=== PATIENT | male | born 1990 | race Caucasian/White ===

== ENCOUNTER 2017-07-09 16:59 | Emergency (ER) | payer OTHER ==
[2017-07-09 19:43] VITALS: BP 122/85
[2017-07-09] MEDS ORDERED: Ketorolac INJ* 60 MG/2 ML VIAL IM ONE (21:09)
--- NOTE | 2017-07-09 21:10 | UC ---
Back Pain HPI - HPI Summary HPI Summary: while doing a squat tonight his back gave out and he had a sudden onset of acute low back pain, he was able to drive to urgent care, no numbness, legs n/m intact does have pain that is limiting his ability to ambulate - History of Current Complaint Chief Complaint: UCBackPain Stated Complaint: BACK PAIN Time Seen by Provider: 07/09/17 21:03 Hx Obtained From: Patient Onset/Duration: Sudden Onset, Lasting Hours Timing: Constant Severity Initially: Severe Severity Currently: Severe Pain Intensity: 6 Back Pain: Is Discrete @ - low back no spinal pain all pain is muscular Character: Aching Aggravating Factor(s): Movement, Walking Alleviating Factor(s): Rest, Position Associated Signs And Symptoms: Positive: Swelling - lateral muscles in lower back left greater than right. Negative: Numbness, Tingling, Bladder Incontinence, Bowel Incontinence Related History: Previous Back Injury - Allergies/Home Medications Allergies/Adverse Reactions: Allergies Allergy/AdvReac Type Severity Reaction Status Date / Time amoxicillin Allergy Rash Verified 07/09/17 19:43 cefaclor [From Ceclor] Allergy Rash Verified 07/09/17 19:43 cephalexin [From Keflex] Allergy Rash Verified 07/09/17 19:43 Home Medications: Home Medications NK [No Home Medications Reported] 07/09/17 [History Confirmed 07/09/17] PMH/Surg Hx/FS Hx/Imm Hx Previously Healthy: Yes - Surgical History Surgical History: Yes Surgery Procedure, Year, and Place: Removal of melanoma (lower back) 2005 - Family History Known Family History: Positive: None - Social History Occupation: Student Lives: Dormitory/Roommates Alcohol Use: Occasionally Substance Use Type: None Smoking Status (MU): Never Smoked Tobacco Review of Systems Constitutional: Negative Skin: Negative Eyes: Negative ENT: Negative Respiratory: Negative Cardiovascular: Negative Gastrointestinal: Negative Genitourinary: Negative Motor: Negative Neurovascular: Negative Musculoskeletal: Myalgia Neurological: Negative Psychological: Negative Is Patient Immunocompromised?: No All Other Systems Reviewed And Are Negative: Yes Physical Exam Triage Information Reviewed: Yes Appearance: Well-Appearing, Well-Nourished, Pain Distress Vital Signs: Initial Vital Signs Temp 99.3 F 07/09/17 19:34 Pulse 68 07/09/17 19:34 Resp 14 07/09/17 19:34 BP 122/85 07/09/17 19:34 Pulse Ox 100 07/09/17 19:34 Vital Signs Reviewed: Yes Eye Exam: Normal Eyes: Positive: Conjunctiva Clear ENT Exam: Normal ENT: Positive: Normal ENT inspection, Hearing grossly normal, TMs normal, Uvula midline. Negative: Nasal congestion, Nasal drainage, Tonsillar swelling, Tonsillar exudate, Trismus, Muffled voice, Hoarse voice, Dental tenderness, Sinus tenderness Neck exam: Normal Neck: Positive: Supple, Nontender, No Lymphadenopathy Respiratory Exam: Normal Respiratory: Positive: Chest non-tender, Lungs clear, Normal breath sounds, No respiratory distress, No accessory muscle use Cardiovascular Exam: Normal Cardiovascular: Positive: RRR, No Murmur, Pulses Normal, Brisk Capillary Refill Musculoskeletal Exam: Normal Musculoskeletal: Positive: Strength Intact - feel weak but from the back pain, ROM Intact, No Edema, Strength Limited @ Neurological Exam: Normal Neurological: Positive: Alert, Muscle Tone Normal Psychological Exam: Normal Psychological: Positive: Normal Response To Family Skin Exam: Normal Diagnostics - Radiology No standard instances Xray Interpretation: No Acute Changes Radiology Interpretation Completed By: Radiologist Re-Evaluation - Re-Evaluation First Eval Change: Improved - while patient has improved in his ability to ambulae pain in back is so sever it is difficult to lift his legs and he is holding in to a cane tight enough to shake--Ask Dr. Love to evaluat patient-who agrees patient should go to ED for further evaluation Back Pain Course/Dx - Course Course Of Treatment: toradol and flexaril to ED by private car with friend driving for further evaluation and treatment - Differential Dx/Diagnosis Provider Diagnoses: acute low back strain - Physician Notifications Discussed Care With: Kate Patrick Time Discussed With Above Provider: 22:55 Discharge - Discharge Plan Condition: Fair Disposition: OTHER Discharge Disposition Comment: by private car to [facility] for further evaluation pain management Patient Education Materials: Low Back Strain (ED) Referrals: [facility] [Outside] - 2 Days
--- NOTE | 2017-07-09 21:53 | RAD ---
Indication: Back pain and decreased range of motion lifting weights. Comparison: February 05, 2015 CT Technique: AP, lateral, and oblique views lumbar sacral spine. Report: Alignment is anatomic. No cortical disruption or trabecular impaction to indicate a vertebral body fracture. Oblique views without evidence for spondylolysis. Preserved disc spaces. Unremarkable soft tissue contours. IMPRESSION: Negative exam.
[2017-07-09] MEDS: Cyclobenzaprine TAB* 10 MG PO ONE (22:49)
== END 2017-07-09 23:10 ==
LOC: UCEAST 16:59
DX: S39.012A Strain of muscle, fascia and tendon of lower back, initial encounter (principal); X50.9XXA Other and unspecified overexertion or strenuous movements or postures, initial encounter; Y93.B9 Activity, other involving muscle strengthening exercises; Y92.9 Unspecified place or not applicable; Z85.820 Personal history of malignant melanoma of skin; Z88.1 Allergy status to other antibiotic agents
CPT/HCPCS: 72110; 99212; A9270-GY; G0463; J1885

== ENCOUNTER 2017-07-09 23:28 | Emergency (ER) | payer OTHER ==
[2017-07-10] MEDS ORDERED: Diazepam SYRINGE* 5 MG/ML 2 ML SYRINGE (10 MG total) IV ONE (01:12)
[2017-07-10] MEDS ORDERED: Ketorolac INJ* 30 MG/ML 1 ML VIAL IV PUSH ONE (01:12)
[2017-07-10] MEDS ORDERED: Diazepam INJ (NF) 5 MG/ML 10 ML VIAL (50 MG TOTAL) IV ONE (02:00)
--- NOTE | 2017-07-10 03:54 | ED ---
Geoff Arevalo Tecjoon, scribed for Cherie De Los Santos MD on 07/10/17 at 0115 . Back Pain - HPI Summary HPI Summary: This patient is a 1 year old male presenting to [facility] with a chief complaint of back pain since 1430 after working out. Patient states the pain is located in his lower back and does not radiate. The pain is rated 5/10 in severity. Symptoms aggravated by nothing. Symptoms alleviated by nothing. Patient denies numbness - History of Current Complaint Chief Complaint: EDBackInjuryPain Stated Complaint: BACK INJURY Time Seen by Provider: 07/10/17 01:07 Hx Obtained From: Patient Onset/Duration: Sudden Onset, Lasting Hours, Still Present Onset/Duration: Still Present Timing: Constant Back Pain Location: Is Discrete @ - lower back Severity Currently: Moderate Pain Intensity: 5 Pain Scale Used: 0-10 Numeric Aggravating Symptom(s): Nothing Alleviating Symptom(s): Nothing Associated Signs And Symptoms: Positive: Negative - numbness - Allergies/Home Medications Allergies/Adverse Reactions: Allergies Allergy/AdvReac Type Severity Reaction Status Date / Time amoxicillin Allergy Rash Verified 07/09/17 19:43 cefaclor [From Ceclor] Allergy Rash Verified 07/09/17 19:43 cephalexin [From Keflex] Allergy Rash Verified 07/09/17 19:43 PMH/Surg Hx/FS Hx/Imm Hx Previously Healthy: Yes Endocrine/Hematology History: Denies: Hx Diabetes Cardiovascular History: Denies: Hx Congestive Heart Failure, Hx Hypertension History: Denies: Hx Renal Disease Musculoskeletal History: Denies: Hx Scoliosis Neurological History: Denies: Hx Headaches, Other Neuro Impairments/Disorders - Cancer History Cancer Type, Location and Year: skin cx dx'd 2005, no chemo/radiation - Surgical History Surgery Procedure, Year, and Place: Removal of melanoma (lower back) 2006 Infectious Disease History: No Infectious Disease History: Denies: Traveled Outside the [place] in Last 30 Days - Family History Known Family History: Negative: Hypertension - Social History Alcohol Use: Occasionally Hx Substance Use: No Substance Use Type: Reports: None Hx Tobacco Use: No Smoking Status (MU): Never Smoked Tobacco Review of Systems Negative: Fever Positive: Other - back pain Negative: Paresthesia All Other Systems Reviewed And Are Negative: Yes Physical Exam - Summary Physical Exam Summary: VITAL SIGNS: Reviewed. GENERAL: Patient is a well-developed and nourished male who is lying comfortable in the stretcher. Patient is not in any acute respiratory distress. HEAD AND FACE: No signs of trauma. No ecchymosis, hematomas or skull depressions. No sinus tenderness. EYES: PERRLA, EOMI x 2, No injected conjunctiva, no nystagmus. EARS: Hearing grossly intact. Ear canals and tympanic membranes are within normal limits. MOUTH: Oropharynx within normal limits. NECK: Supple, trachea is midline, no adenopathy, no JVD, no carotid bruit, no c- spine tenderness, neck with full ROM. CHEST: Symmetric, no tenderness at palpation LUNGS: Clear to auscultation bilaterally. No wheezing or crackles. CVS: Regular rate and rhythm, S1 and S2 present, no murmurs or gallops appreciated. ABDOMEN: Soft, non-tender. No signs of distention. No rebound no guarding, and no masses palpated. Bowel sounds are normal. EXTREMITIES: FROM in all major joints, no edema, no cyanosis or clubbing. Left straight leg raise of 60 degrees NEURO: Alert and oriented x 3. No acute neurological deficits. Speech is normal and follows commands. SKIN: Dry and warm Triage Information Reviewed: Yes Vital Signs On Initial Exam: Initial Vitals Temp Pulse Resp BP Pulse Ox 98.0 F 68 16 134/74 99 07/09/17 23:41 07/09/17 23:41 07/09/17 23:41 07/09/17 23:41 07/09/17 23:41 Vital Signs Reviewed: Yes Diagnostics - Vital Signs Vital Signs Temp Pulse Resp BP Pulse Ox 07/09/17 23:41 98.0 F 68 16 134/74 99 - Laboratory Lab Statement: Any lab studies that have been ordered have been reviewed, and results considered in the medical decision making process. Back Pain Course/Dx - Course Course Of Treatment: This patient is a 1 year old male presenting to [facility] with a chief complaint of back pain since 1430 after working out. Patient states the pain is located in his lower back and does not radiate. In the ED course the patient was given Toradol, Valium. Patient will be discharged with a diagnosis of lower back pain and a prescription for Flexeril and Motrin. Patient is advised to follow up with PCP in 3 days. The patient is agreeable with this plan. - Diagnoses Provider Diagnoses: Lower back pain Discharge - Discharge Plan Condition: Stable Disposition: HOME Prescriptions: Cyclobenzaprine TAB* [Flexeril 10 MG TAB*] 10 mg PO TID PRN #20 tab PRN Reason: Spasms - Muscle Ibuprofen TAB* [Motrin TAB* 800 MG] 800 mg PO Q6H PRN #30 tab PRN Reason: Pain Patient Education Materials: Low Back Strain (ED) Referrals: No Primary Care Phys,NOPCP [Primary Care Provider] - 3 Days [facility] [Outside] - 3 Days Additional Instructions: Patient will be discharged with a diagnosis of lower back pain and a prescription for Flexeril and Motrin. Patient is advised to find a PCP in 3 days. The patient is agreeable with this plan. The documentation as recorded by the Geoff chisholm Tecjoon accurately reflects the service I personally performed and the decisions made by Filiberto garcia Abdul, MD.
[2017-07-10 04:09] VITALS: BP 124/76
== END 2017-07-10 03:58 | disposition home or self-care (01) ==
LOC: ED 23:28
DX: M54.5 Low back pain (principal)
CPT/HCPCS: 96374; 96375; 99284; J1885; J3360